=== PATIENT | female | born 2000 | race Caucasian/White ===

== ENCOUNTER → 2023-01-18 | Outpatient (CLI) | payer BC ==
[2023-01-18 16:15] LABS: Candida species (DNA Probe) Negative (NEGATIVE); G. vaginalis (DNA Probe) Positive (NEGATIVE); T. vaginalis (DNA Probe) Negative (NEGATIVE)
[2023-01-20 08:12] LABS: HIV AB/P24 AG SCREEN Non Reactive (Non Reactive)
[2023-01-21 03:09] LABS: CHLAMYDIA TRACHOMATIS, NAA Negative (Negative)
[2023-01-21 07:13] LABS: HBSAG SCREEN Negative (Negative); HCV AB Non Reactive (Non Reactive); HEP A AB, IGM Negative (Negative); HEP B CORE AB, IGM Negative (Negative)
[2023-01-21 08:33] LABS: INTERPRETATION: CommentAO
== END ==
LOC: LAB SHORT 14:00 → LAB 14:00
PROVIDERS: Physician Assistant
DX: N76.0 Acute vaginitis (principal); Z20.2 Contact with and (suspected) exposure to infections with a predominantly sexual mode of transmission
CPT/HCPCS: 80074; 86592; 87086; 87389; 87480; 87491; 87510; 87591; 87660

== ENCOUNTER → 2023-12-18 | Outpatient (CLI) | payer BC ==
[2023-12-22 12:40] LABS: C. TRACHOMATIS BY TMA,THINPREP Negative (Negative); N. GONORRHOEAE BY TMA,THINPREP Negative (Negative); SPECIMEN SOURCE Cervical
== END ==
LOC: LAB 17:26 → LAB SHORT 17:26
PROVIDERS: Family Medicine
DX: Z01.419 Encounter for gynecological examination (general) (routine) without abnormal findings (principal)
CPT/HCPCS: 87491; 87591; G0123

== ENCOUNTER → 2024-08-25 | Outpatient (CLI) | payer BC | END | disposition home or self-care (01) | LOC: LAB 18:35 → LAB SHORT 18:35 | DX: O26.899 Other specified pregnancy related conditions, unspecified trimester (principal); O99.891 Other specified diseases and conditions complicating pregnancy; R10.30 Lower abdominal pain, unspecified | CPT/HCPCS: 87086 ==

== ENCOUNTER → 2024-10-16 | Outpatient (CLI) | payer BC | LOC: LAB 17:53 → LAB SHORT 17:53 | DX: N39.0 Urinary tract infection, site not specified (principal) | CPT/HCPCS: 87086 ==